=== PATIENT | female | born 2000 | race Hispanic/Latino ===

== ENCOUNTER 2020-05-19 10:35 | Emergency (ER) | payer OTHER ==
[~2020-05-19] VITALS: Ht 157.5 cm; Wt 61.9 kg
[2020-05-19] MEDS ORDERED: NS 1,000 ML IV ONE (11:15)
[2020-05-19] MEDS ORDERED: ONDANSETRON 4MG/2ML VIAL IV ONE (11:15)
[2020-05-19 11:36] LABS: BASO % 0.4 % (0.0-1.0); EOS # 0.1 10^3/uL (0.0-0.5); EOS % 1.7 % (0.0-3.0); HEMATOCRIT 40.3 % (36.0-47.0); HEMOGLOBIN 13.6 g/dl (12.0-15.5); LYMPH # 1.1 10^3/uL (1.5-5.0); LYMPH % 13.7 % (24.0-44.0); MEAN CORPUSCULAR HEMOGLOBIN 30.2 pg (27.0-33.0); MEAN CORPUSCULAR HGB CONC 33.7 g/dl (32.0-36.5); MEAN CORPUSCULAR VOLUME 89.4 fl (80.0-96.0); MONO # 0.5 10^3/uL (0.0-0.8); MONO % 5.9 % (0.0-5.0); NEUTROPHILS # 6.4 10^3/uL (1.5-8.5); NEUTROPHILS % 77.9 % (36.0-66.0); PLATELET COUNT, AUTOMATED 278 10^3/uL (150-450); RED BLOOD COUNT 4.51 10^6/uL (4.00-5.40); WHITE BLOOD COUNT 8.2 10^3/uL (4.0-10.0)
[2020-05-19 11:55] LABS: BLOOD UREA NITROGEN 9 MG/DL (7-18); CALCIUM LEVEL 9.9 MG/DL (8.5-10.1); CARBON DIOXIDE LEVEL 24 MEQ/L (21-32); CHLORIDE LEVEL 103 MEQ/L (98-107); CREATININE FOR GFR 0.82 MG/DL (0.55-1.30); GLUCOSE, FASTING 83 MG/DL (70-100); POTASSIUM SERUM 3.7 MEQ/L (3.5-5.1); SODIUM LEVEL 137 MEQ/L (136-145)
[2020-05-19] MEDS ORDERED: PYRI25TA2 PO (12:20)
[2020-05-19] MEDS ORDERED: UNIS25TA3 PO (12:20)
[2020-05-19 12:53] VITALS: BP 106/51
[2020-05-19 13:00] LABS: HCG, SERUM QUANTITATIVE 125177 MIU/ML
== END 2020-05-19 13:02 | disposition home or self-care (01) ==
LOC: M ED 10:35
DX: O21.9 Vomiting of pregnancy, unspecified (principal); Z3A.08 8 weeks gestation of pregnancy
CPT/HCPCS: 36415; 80048; 81001; 84702; 85025; 87086; 96361; 96374; 99284; J2405

== ENCOUNTER 2020-06-19 14:37 | Emergency (ER) | payer OTHER ==
[~2020-06-19] VITALS: Ht 157.5 cm; Wt 60.5 kg
[~2020-06-19 14:37] MED LIST: PYRI25TA2 PO; UNIS25TA3 PO
[2020-06-19] MEDS ORDERED: METOCLOPRAMIDE INJ 10MG/2ML VIAL (J2765 PER 1) IV ONE (15:15)
[2020-06-19] MEDS ORDERED: NS 1,000 ML IV ONE (15:15)
[2020-06-19 15:35] LABS: BASO % 0.3 % (0.0-1.0); EOS # 0.1 10^3/uL (0.0-0.5); EOS % 0.9 % (0.0-3.0); HEMATOCRIT 35.5 % (36.0-47.0); HEMOGLOBIN 11.9 g/dl (12.0-15.5); LYMPH # 0.8 10^3/uL (1.5-5.0); LYMPH % 11.5 % (24.0-44.0); MEAN CORPUSCULAR HEMOGLOBIN 29.8 pg (27.0-33.0); MEAN CORPUSCULAR HGB CONC 33.5 g/dl (32.0-36.5); MEAN CORPUSCULAR VOLUME 88.8 fl (80.0-96.0); MONO # 0.3 10^3/uL (0.0-0.8); NEUTROPHILS # 5.6 10^3/uL (1.5-8.5); NEUTROPHILS % 81.9 % (36.0-66.0); PLATELET COUNT, AUTOMATED 241 10^3/uL (150-450); WHITE BLOOD COUNT 6.8 10^3/uL (4.0-10.0)
[2020-06-19 15:46] LABS: APPEARANCE, URINE HAZY (CLEAR); BACTERIA, URINE AUTO NEGATIVE (NEGATIVE); BILIRUBIN, URINE AUTO NEGATIVE (NEGATIVE); BLOOD, URINE BLOOD NEGATIVE (NEGATIVE); COLOR, URINE AMBER (YELLOW); GLUCOSE, URINE (UA) AUTO NEGATIVE (NEGATIVE); KETONE, URINE AUTO 2+ mg/dL (NEGATIVE); LEUKOCYTE ESTERASE, URINE AUTO 2+ (NEGATIVE); MUCUS, URINE MODERATE (NEGATIVE); NITRITE, URINE AUTO NEGATIVE (NEGATIVE); PROTEIN, URINE AUTO 1+ mg/dL (NEGATIVE); RBC, URINE AUTO 1 /HPF (0-3); SPECIFIC GRAVITY URINE AUTO 1.033 (1.002-1.035); SQUAMOUS EPITHELIAL CELL UR AU 7 /HPF (0-6); WBC, URINE AUTO 31 /HPF (0-3)
[2020-06-19 16:02] LABS: ALBUMIN 3.7 GM/DL (3.2-5.2); ALT/SGPT 16 U/L (12-78); BILIRUBIN,DIRECT 0.2 MG/DL (0.0-0.2); BILIRUBIN,TOTAL 0.5 MG/DL (0.2-1.0); BLOOD UREA NITROGEN 9 MG/DL (7-18); CALCIUM LEVEL 8.7 MG/DL (8.5-10.1); CARBON DIOXIDE LEVEL 26 MEQ/L (21-32); CHLORIDE LEVEL 106 MEQ/L (98-107); CREATININE FOR GFR 0.67 MG/DL (0.55-1.30); GLUCOSE, FASTING 84 MG/DL (70-100); LIPASE 295 U/L (73-393); POTASSIUM SERUM 3.5 MEQ/L (3.5-5.1); SODIUM LEVEL 138 MEQ/L (136-145); TOTAL PROTEIN 7.2 GM/DL (6.4-8.2)
[2020-06-19] MEDS ORDERED: REGL10TA6 PO (18:16)
[2020-06-19 18:28] VITALS: BP 115/58
== END 2020-06-19 18:29 | disposition home or self-care (01) ==
LOC: M ED 14:37
DX: O21.9 Vomiting of pregnancy, unspecified (principal); Z3A.12 12 weeks gestation of pregnancy
CPT/HCPCS: 80048; 80076; 81001; 83690; 85025; 87086; 96361; 96374; 99284; J2765

== ENCOUNTER 2020-07-24 12:22 | Emergency (ER) | payer OTHER ==
[~2020-07-24] VITALS: Ht 157.5 cm; Wt 61.2 kg
[~2020-07-24 12:22] MED LIST changes: +REGL10TA6 PO
--- OUTSIDE RECORDS SUMMARY | 2020-07-24 12:32 | CCD ---
Author Author [facility] Organization [facility] Address Unknown Phone Unavailable Support Name Relationship Address Phone [facility] Next Of Kin [address] [place] [address] Unavailable RAKAN HITCHCOCK Next Of Kin [phone] [place] [address] Re-disclosure Warning The records that you are about to access may contain information from federally-assisted alcohol or drug abuse programs. If such information is present, then the following federally mandated warning applies: This information has been disclosed to you from records protected by federal confidentiality rules (42 CFR part 2). The federal rules prohibit you from making any further disclosure of this information unless further disclosure is expressly permitted by the written consent of the person to whom it pertains or as otherwise permitted by 42 CFR part 2. A general authorization for the release of medical or other information is NOT sufficient for this purpose. The Federal rules restrict any use of the information to criminally investigate or prosecute any alcohol or drug abuse patient.The records that you are about to access may contain highly sensitive health information, the redisclosure of which is protected by Article 27-F of the [facility] Public Health law. If you continue you may have access to information: Regarding HIV / AIDS; Provided by facilities licensed or operated by the [facility] Office of Mental Health; or Provided by the [facility] Office for People With Developmental Disabilities. If such information is present, then the following [facility] mandated warning applies: This information has been disclosed to you from confidential records which are protected by state law. State law prohibits you from making any further disclosure of this information without the specific written consent of the person to whom it pertains, or as otherwise permitted by law. Any unauthorized further disclosure in violation of state law may result in a fine or usp sentence or both. A general authorization for the release of medical or other information is NOT sufficient authorization for further disc losure. Insurance Providers Payer name Policy type / Coverage type Policy ID Covered democrat ID Covered democrat's relationship to mascorro Policy Mascorro Plan Information [facility] ACTIVE DUTY [id number]
[2020-07-24] MEDS ORDERED: PRENTAB53 PO (12:38)
[2020-07-24] MEDS ORDERED: NS 1,000 ML IV ONE (13:30)
[2020-07-24] MEDS ORDERED: ONDANSETRON 4MG/2ML VIAL IV ONE (13:30)
--- OUTSIDE RECORDS SUMMARY | 2020-07-24 14:12 | CCD ---
Author Author [facility] Organization [facility] Address Unknown Phone Unavailable Support Name Relationship Address Phone [facility] Next Of Kin [address] [place] [address] Unavailable RAKAN HITCHCOCK Next Of Kin [phone] [place], [place] [id number] Re-disclosure Warning The records that you are [...] is protected by Article 27-F of the [facility] Public Health law. If you continue you may have access to information: Regarding HIV / AIDS; Provided by facilities licensed or operated by the [facility] Office of Mental Health; or Provided by the [facility] Office for People With Developmental Disabilities. If such information is present, then the following [facility] mandated warning applies: This information has [...] law may result in a fine or shelter sentence or both. A general authorization for the release of medical or other information is NOT sufficient authorization for further disc losure. Insurance Providers Payer name Policy type / Coverage type Policy ID Covered alliance party ID Covered alliance party's relationship to mascorro Policy Mascorro Plan Information [facility] ACTIVE [employer] [id number]
[2020-07-24] MEDS ORDERED: PROM25TA12 RC (15:21)
[2020-07-24] MEDS ORDERED: CEFD1CAP8 PO (15:21)
[2020-07-24 15:50] VITALS: BP 110/59
== END 2020-07-24 15:51 | disposition home or self-care (01) ==
LOC: M ED 12:22
DX: O23.42 Unspecified infection of urinary tract in pregnancy, second trimester (principal); O21.9 Vomiting of pregnancy, unspecified; Z3A.17 17 weeks gestation of pregnancy; Z79.899 Other long term (current) drug therapy
CPT/HCPCS: 80047; 81001; 87086; 96361; 96374; 99284; J2405

== ENCOUNTER 2020-09-09 23:07 | Outpatient (CLI) | payer OTHER ==
[~2020-09-09] VITALS: Ht 157.5 cm; Wt 65.9 kg
[~2020-09-09 23:07] MED LIST changes: +CEFD1CAP8 PO; +PRENTAB53 PO; +PROM25TA12 RC
[2020-09-09 23:30] VITALS: BP 118/53
[2020-09-09 23:42] VITALS: BP 102/54
--- NOTE | 2020-09-10 01:20 | IPNPDOC ---
Text Note Date of Service The patient was seen on 09/10/20. NOTE 09/10/20 0105 am 20 yo lmp 03/23/20 edc 12/28/20 came to labor when wiped saw scant fresh blood. no contractions good movement recent sex < 24 hours ago' past history std positive spencer negative chapter 8 physical exam no acute distress no vaginal bleeding no discharge, monitoring active no contractions moderate variability for 25 weeks . declined pelvic examination , us breech presentation sharda normal cervix closed 4,0 cm motion noted placenta posterior no previa or abruption Bad table Item Value Date Time Urine Color YELLOW 09/09/204 Urine Appearance HAZY 09/09/204 Urine pH 7.0 UNITS 09/09/204 Urine Specific [place] 1.016 09/09/204 Urine Protein NEGATIVE mg/dL 09/09/202333 Urine Glucose (UA) NEGATIVE mg/dL 09/09/204 Urine Ketones NEGATIVE mg/dL 09/09/202333 Urine Blood NEGATIVE 09/09/204 Urine Nitrite NEGATIVE 09/09/204 Urine Bilirubin NEGATIVE 09/09/204 Urine Urobilinogen 0.2 mg/dL 09/09/204 Urine Leukocyte Esterase NEGATIVE 09/09/204 Urine WBC (Auto) 2 /HPF 09/09/204 Urine Hyaline Casts (Auto) 0 /LPF 09/09/204 Urine RBC (Auto) 0 /HPF 09/09/204 Urine Bacteria (Auto) NEGATIVE 09/09/204 Urine Squamous Epithelial Cells 0 /HPF 09/09/204 Urine Amorphous Sediment SMALL H 09/09/204 Urine Mucus (Auto) SMALL 09/09/20 2334 VS,Fishbone, I+O VS, Fishbone, I+O Bad table Vital Signs Date Time Temp Pulse Resp B/P (MAP) Pulse Ox O2 Delivery O2 Flow Rate FiO2 09/09/20 23:42 16 102/54 (70) 09/09/20 23:30 97.7 100 Room Air Fredy Sousa MD Sep 10, 2020 01:16
== END 2020-09-10 01:00 | disposition home or self-care (01) ==
LOC: M LDO 23:07
PROVIDERS: ATTEND Obstetrics & Gynecology
DX: O26.892 Other specified pregnancy related conditions, second trimester (principal); Z3A.25 25 weeks gestation of pregnancy
CPT/HCPCS: 81001; G0463

== ENCOUNTER → 2020-12-22 | Outpatient (CLI) | payer SELFPAY | LOC: M LABSMTC 09:48 | PROVIDERS: ATTEND Pediatrics | DX: Z20.822 Contact with and (suspected) exposure to COVID-19 (principal) ==

== ENCOUNTER 2020-12-30 13:08 | Inpatient (IN) | payer MEDICAID, OTHER ==
[~2020-12-30] VITALS: Ht 157.5 cm; Wt 78.1 kg
[2020-12-30 13:38] VITALS: BP 143/71
[2020-12-30] MEDS ORDERED: VITA100T59 PO (13:58)
--- NOTE | 2020-12-30 13:59 | HPEPDOC ---
Obstetrical History & Physical General Date of Admission Dec 30, 2020 at 13:08 History of Present Illness Ms. Ely Lyn is a 20yo G1 at 40w2d ega, by LMP c/w 1st trimester, wit h PNC c/b Genital HSV & Anemia who presents in Early Active Labor. Mrs. Lyn presented for a LORI appointment today at the [facility] reporting regular, q5-minute CTXs. She was checked and was found to be 2/50/-3. Repeat evaluation 3 hours later was 4/50/-2. She denies LOF, VB, and Prodromal HSV symptoms. Endorses +FM. Chief Complaint: Contractions, term Information Provided By: Patient Age: 20 : 1 Term: 0 Pre-term: 0 Abortions: 0 Livin Care Care: Good Care Number of Visits: 9 Dating Final EDC: Dec 28, 2020 Final EDC for Daily Update: Dec 28, 2020 Final EDC by: LMP, 1st trimester (US) LMP: Mar 23, 2020 1st Trimester Date: May 30, 2020 Weeks + Days: 9 Estimated Date of Confinement: Dec 28, 2020 EGA at Admission: 40 Antepartum Course Diagnos(e)s - Genital HSV - Anemia Height (inches): 62 Pre- weight (lbs.): 140 Past Medical History Past Obstetrical History : Past Obstetrical History: [facility] History: Herpes simplex virus(HSV), History of STD Past Medical History Surgical History: Denies/None Family History Significant Family History: No pertinent family hx Social History Marital Status: Single Psychosocial History: No pertinent psych hx * Smoker: non-smoker Alcohol: Denies Drugs: denies Abuse Violence Screening Have you been hit/kicked/slapp: No Have you been sexually assault: No Imunizations Tdap status: current Influenza Status: current Allergies Coded Allergies: red dye (Verified Allergy, Intermediate, Rash, 07/24/20) Penicillins (Verified Allergy, Mild, HIVES, 12/30/20) Medications Scheduled Ascorbic Acid (Vitamin C) 100 Mg Tablet, 300 MG PO BID Ferrous Sulfate (Iron) 325 Mg Tablet, 1 TAB PO BID Vit,Calc76/Iron/Folic (Prenatabs Rx Tablet) 1 Each Tablet, 1 TAB PO DAILY Valacyclovir HCl (Valtrex) 500 Mg Tablet, 500 MG PO BID Scheduled PRN Doxylamine Succinate (Unisom Sleep Aid) 25 Mg Tablet, 0.5 TAB PO BIDP PRN for NAUSEA Physical Examination Physical Examination GENERAL: Alert and oriented times three. BREAST: . ABDOMEN: Gravid and non-tender to touch. FETUS: Is vertex (VTX) by sterile vaginal examination (SVE), fetus is vertex (VTX) by Singh. HEART RATE: Regular rate and rhythm. LUNGS: Clear to auscultation (CTA). EXTREMITIES: No edema. SSE: Vesicular lesions on the cervix, no pooling of fluid Laboratory Data 24H LABS Laboratory Tests 2 12/30/20 13:29: Serology Scanned Report Hepatitis B Testing Urine Culture: No Growth Pertinent Laboratoy Data Blood Type: A+ RBC Antibody Screen: Negative HIV: Negative Hepatitis B: Negative Hepatitis C: Negative Rapid Plasma Reagin: Nonreactive Rubella: Immune Varicella: Immune Chlamydia/Gonorrhea: Negative Group B Streptococcus: Negative Quad Screen Test: Negative Cystic Fibrosis: Negative Glucose Tolerance Test: 89 Anatomy Ultrasound Ultrasound Date: Sep 09, 2020 Placenta Location: Posterior Normal Anatomy: Yes Placenta Previa: No Estimated Weight (grams): 668 Steroid Therapy Steroid Therapy: No Vaginal Examination Dilation: 4 cm Effacement: 50% Station: -2 Cervical Consistency: Medium Cervical Position: Posterior Presentation: Cephalic presentation Assessment Heart Rate (FHR): 125 Variability: Moderate Accelerations: Positive Decelerations: None Tocometer Contractions: Yes Frequency: regular, every 3-7 min. Duration: less than 60 seconds Strength: palpated as mild Multi-drug resistant Organism: No history of MDRO Assessment/Plan Assessment Ms. Renita Lyn is a 20yo G1 at 40w2d ega with PNC c/b Genital HSV & Anemia who presents in Early Active Labor with regular uterine CTXs. Unfortunately, the patient was found to have vesciular lesions on the cervix. Plan Admit and orient. 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 Diet: NPO. Group B Streptococcus (GBS) negative. Labs and intravenous (IV) per unit protocol. Counseled on Primary Low Transverse Section. Lactated Ringers (LR): 1000mL bolus with 125mL/hr. Gentamycin & Clindamycin iv 30-minutes prior to procedure. Zackary Mccall., Ph.D. [facility] Staff JOSE LUIS JANSEN M.D. Dec 30, 2020 13:59
[2020-12-30] MEDS ORDERED: IRON65TA2 PO (14:00)
[2020-12-30] MEDS ORDERED: VALT500T PO (14:00)
[2020-12-30] MEDS ORDERED: HOME MED LIST COMPLETE! XX SCH (14:05)
[2020-12-30] MEDS ORDERED: LACTATED RINGER'S 1000 ML IV STA (15:31)
[2020-12-30] MEDS ORDERED: BUPIVACAINE HCL 0.25% 10ML VIAL SC SCH (15:35)
[2020-12-30] MEDS ORDERED: BICITRA 30ML SOLN UDC PO ONE (15:45)
[2020-12-30] MEDS ORDERED: CLINDAMYCIN 900 MG in IV 1 EA IV ONE (16:00)
[2020-12-30 16:32] LABS: HEMATOCRIT 36.7 % (36.0-47.0); HEMOGLOBIN 12.5 g/dl (12.0-15.5); MEAN CORPUSCULAR HGB CONC 34.1 g/dl (32.0-36.5); MEAN CORPUSCULAR VOLUME 93.9 fl (80.0-96.0); PLATELET COUNT, AUTOMATED 234 10^3/uL (150-450); RED BLOOD COUNT 3.91 10^6/uL (4.00-5.40); WHITE BLOOD COUNT 12.8 10^3/uL (4.0-10.0)
[2020-12-30 16:52] VITALS: BP 127/66
[2020-12-30] MEDS ORDERED: D5W IV ONE (17:00)
[2020-12-30] MEDS ORDERED: GENTAMICIN IV ONE (17:00)
[2020-12-30] MEDS ORDERED: MORPHINE PRES-FREE INJ 10 MG/10 ML VIAL (J2274) As Ordered ONE (17:54)
[2020-12-30] MEDS ORDERED: dexameTHASONE 4 MG/ML 1ML VIAL (J1100 PER 1MG) As Ordered ONE ×2 (17:54→17:55)
[2020-12-30] MEDS ORDERED: OXYTOCIN 30 UNITS IN 0.9% NaCl 500ML IV BAG (J2590) As Ordered ONE ×2 (17:55→19:37)
[2020-12-30] MEDS ORDERED: KETOROLAC 60MG 2ML VIAL As Ordered ONE (17:55)
[2020-12-30] MEDS ORDERED: PHENYLephrine 500MCG 5ML (100MCG/ML) SYRINGE As Ordered ONE (17:55)
[2020-12-30] MEDS ORDERED: ePHEDrine SULFATE 25 MG/5 ML(5MG/ML) SYRINGE As Ordered ONE (17:55)
[2020-12-30] MEDS ORDERED: OXYTOCIN INJ 10 UNITS/ML VIAL (J2590) As Ordered ONE (17:55)
[2020-12-30] MEDS ORDERED: ONDANSETRON 4MG/2ML VIAL As Ordered ONE (17:55)
[2020-12-30] MEDS ORDERED: BUPIVACAINE HCL 0.25% 10ML VIAL As Ordered ONE (18:02)
[2020-12-30] MEDS ORDERED: diphenhydrAMINE 50MG/ML VIAL (J1200) IV PRN (18:06)
[2020-12-30] MEDS ORDERED: NALBUPHINE HCL 10 MG/ML AMP (J2300) IV PRN (18:06)
[2020-12-30] MEDS ORDERED: METOCLOPRAMIDE INJ 10MG/2ML VIAL (J2765 PER 1) IV PRN ×2 (18:06→19:25)
[2020-12-30] MEDS ORDERED: NALOXONE INJ 0.4MG/1ML VIAL (J2310 PER 1MG) IV PRN ×2 (18:06)
[2020-12-30] MEDS ORDERED: ONDANSETRON 4MG/2ML VIAL IV PRN ×2 (18:06→19:25)
[2020-12-30 18:47] LABS: CORD GAS ABE V -3.6; CORD GAS HCO3 V 22.9 MEQ/L; CORD GAS O2 SAT V 41.1 %; CORD GAS PCO2 V 46.7 mmHg; CORD GAS PH V 7.309 UNITS; CORD GAS PO2 V 19.9 mmHg; CORD GAS SBC V 20.1 MEQ/L; CORD GAS TCO2 V 24.4 MEQ/L
[2020-12-30 18:49] LABS: CORD GAS ABE A -4.2; CORD GAS HCO3 A 24.1 MEQ/L; CORD GAS O2 SAT A 32.4 %; CORD GAS PCO2 A 56.7 mmHg; CORD GAS PH A 7.246 UNITS; CORD GAS PO2 A 19.7 mmHg; CORD GAS SBC A 19.4 MEQ/L; CORD GAS TCO2 A 25.8 MEQ/L
[2020-12-30] MEDS ORDERED: MEASLES,MUMPS,RUBELLA VACCINE INJ (MMR-II) (90707) SC SCH (19:10)
[2020-12-30] MEDS ORDERED: SIMETHICONE 80MG CHEW TAB PO PRN (19:10)
[2020-12-30] MEDS ORDERED: RHOGAM 300 MCG (1500 IU) INJ (J2790) IM SCH (19:10)
[2020-12-30] MEDS ORDERED: ACETAMINOPHEN 500 MG TAB PO PRN (19:10)
[2020-12-30] MEDS ORDERED: ACETAMINOPHEN TAB 650MG DOSE (2X325MG) PO PRN (19:10)
[2020-12-30] MEDS ORDERED: oxyCODONE 5MG TAB PO PRN ×2 (19:10)
[2020-12-30] MEDS ORDERED: OXYTOCIN DRIP 30 UNITS in IV 1 EA IV SCH ×4 (19:10)
[2020-12-30] MEDS ORDERED: LR 1,000 ML IV SCH (19:25)
[2020-12-30] MEDS ORDERED: fentaNYL 100 MCG/2 ML INJECTION (J3010) IV PRN (19:25)
[2020-12-30] MEDS ORDERED: PERCOCET 5MG/325MG TAB PO PRN (19:25)
--- NOTE | 2020-12-30 19:47 | ROOPDOC ---
[facility] Report Of Operation Report of Operation DATE OF PROCEDURE: 12/30/20 PREPROCEDURE DIAGNOSES: 1) Term intrauterine . 2) Active HSV lesions on the cervix. POSTPROCEDURE DIAGNOSES: 1) Same As Above. 2) Delivered Via Primary Low Transverse Delivery. PROCEDURE: Primary Low Transverse Section. SURGEON: Lui Jansen MD, PhD CONCRETE BUSTER OPERATOR: Fredy Sousa MD ANESTHESIA: Spinal. ESTIMATED BLOOD LOSS: 400mL. COMPLICATIONS: None. REMARKS: This procedure was productive of a viable female infant weighing 3550- grams with APGARS 9 / 9. Estimated blood loss 400mL. 125cc of clear, yellow urine. 500mL of Lactated Ringer's. Normal appearing uterus & bilateral fallopian tubes and ovaries. The hysterotomy was repaired in 2-layers with 0 Monocryl. The vesicouterine peritoneum was closed in a running fashion with 2-O Vicryl. The peritoneum was closed with 2-0 Vicryl in a running fashion. Interrupted 2-0 Vicryl sutures x3 were used to reapproximate the rectus muscles. Fascia closed with 0-Vicryl in a running fashion. Skin was closed with 3-0 Vicryl on a Tejinder needle. PROCEDURE NOTE: See above. DESCRIPTION OF PROCEDURE: The risks, benefits, indications, and alternatives of the procedure were reviewed with the patient and informed consent was obtained. The patient was then taken to the operating room where spinal anesthesia was obt ained without difficulty. She was then prepped and draped in the normal, sterile fashion in the dorsal supine position with a leftward tilt. A Pfannenstiel incision was then made with a scalpel and carried through to the underlying layer fascia. The fascia was incised in the midline and the incision extended laterally with the Varner scissors. The superior aspect of the fascial incision was grasped with the Remy clamps elevated and the underlying rectus muscles dissected off with Varner scissors. Attention was then turned to the inferior aspect of the incision which in a similar fashion was grasped, tented up with the Remy clamps, and the rectus muscles dissected off with Varner scissors. The rectus muscles were then in the midline and the peritoneum identified, tented up, and entered digitally. The peritoneal incision was then extended horizontally with good visualization of the bladder. The bladder blade was then inserted. The vesicouterine peritoneum was then identified grasped with the pickups and entered sharply with the Metzenbaum scissors. The incision was then extended laterally and the bladder flap created digitally. The bladder blade was subsequently reinserted. Next the lower uterine segment was incised in a transverse fashion with the sca lpel. The uterine incision was then extended manually and the amniotic sac was artificially ruptured productive of meconium stained fluid. The bladder blade was removed and the infant's head delivered atraumatically through the hysterotomy without difficulty. The nose and mouth were suctioned with a bulb syringe and the cord doubly clamped and cut. The was handed off to the waiting baby nurses. Cord gases were then obtained. The placenta was then removed spontaneously with gentle traction on the umb ilical cord. The uterus was then exteriorized and cleared of all clots and debris. The uterine incision was repaired with 0-Monocryl in a running, locked fashion. A second layer of 0-Monocryl was then used to imbricate the hysterotomy in a horizontal fashion. Two [id number] sutures using 0-Monocryl were then placed in the middle aspect of the incision to obtain excellent hemostasis. The vesicouterine peritoneum was then closed with a 2-O Vicryl in a running fashion. The uterus was then returned to the abdomen and the hysterotomy was again noted to be hemostatic. The peritoneum was then identified and closed with 2-0 Vicryl in a running fashion. 2-0 Vicryl interrupted sutures x3 were placed to reapproximate the rectus muscles. The fascia was then reapproximated with 0- Vicryl in a running fashion. The subcutaneous layer layer was closed with 3-0 Vicryl in a interrupted fashion. Next the skin was closed with 4-0 Vicryl on a Tejinder needle in a subcuticular fashion. The skin incision was then dressed with Steri-Strips and a pressure dressing applied. At the completion of the case bimanual exam was performed with good uterine tone and minimal vaginal bleeding. The patient tolerated the procedure well. Sponge, lap, and needle counts were correct x3. The patient was taken to the recovery room in stable condition. JOSE LUIS JANSEN M.D. Dec 30, 2020 19:47
[2020-12-30 21:00] VITALS: BP 130/60
[2020-12-30] MEDS ORDERED: oxyCODONE 15 MG CR TAB PO SCH (21:00)
[2020-12-30] MEDS ORDERED: DOCUSATE SODIUM 100MG CAPSULE PO SCH (21:00)
[2020-12-30 21:30] VITALS: BP 128/61
[2020-12-30] MEDS ORDERED: PROMETHAZINE INJ 25 MG/ML VIAL (J2550) IV ONE (21:40)
[2020-12-30] MEDS: LR 1,000 ML IV SCH (22:15)
[2020-12-30 22:30] VITALS: BP 116/61
[2020-12-30 23:30] VITALS: BP 108/56
[2020-12-31] MEDS: KETOROLAC 30 MG/ML 1ML VIAL IV SCH ×3 (01:18→14:10)
[2020-12-31] MEDS: LR 1,000 ML IV SCH (01:19)
[2020-12-31 02:00] VITALS: BP 105/55
[2020-12-31 06:00] VITALS: BP 109/54
--- NOTE | 2020-12-31 06:13 | IPNPDOC ---
Progress Note Date of Service: Dec 31, 2020 Day#: 1 Progress Note SUBJECT: Ms. Renita Lyn is a 20yo who is POD#1 s/p an uncomplicated PLTCS secondary to active HSV outbreak. Of note, the procedure was productive of a viable female weighing 3550-grams with APGARS 9/9. Delivery was at 18:28. EBL 400mL. This morning, Ms. Lyn reports that she is doing well. Her pain is well controlled; she is tolerating oral intake; is voiding via Hartley catheter; has y et to ambulate; and is passing flatus. She is breast feeding without issue; and reports that her lochia is similar to a normal period. She desires a Nexplanon for contraception. OBJECTIVE: VITAL SIGNS: Within normal limits, afebrile. GEN: Alert and oriented times three. ABD: Pressure dressing removed revealing an incision that was c/d/i with steri- strips; Fundus firm at U-2. LE: No c/c/e LAB: CBC (30 December 2020) - 12.8>12.5/36.7<234 CBC (31 December 2020) - PENDING ASSESSMENT: Ms. Lyn is a 20yo who is POD#1 s/p an uncomplicated PLTCS who is doing well. Vitals within normal limits, afebrile, hemodynamically stable with no evidence of infection. PLAN: 1. Discontinue Hartley catheter with 4-hour Due-To-Void 2. Follow-up on morning CBC. 3. Toradol, Tylenol and Oxycodone for pain. 4. Continue Vitamins & Valtrex 5. Encouraged ambulation & continued breast feeding. 6. Nexplanon for contraception. 7. Routine incision visit in 2 weeks. 8. Routine PP visit in 6 weeks in clinic. 9. Discussed return precautions at length. VS, I&O, 24H, Fishbone Vital Signs/I&O Vital Signs Date Time Temp Pulse Resp B/P (MAP) Pulse Ox O2 Delivery O2 Flow Rate FiO2 12/31/20 02:00 97.6 67 16 105/55 (72) 100 Room Air I&O- Last 24 Hours up to 6 AM 12/31/20 06:00 Intake Total 2000 ml Output Total 1450 ml Balance 550 ml Laboratory Data 24H LABS Laboratory Tests 2 12/30/20 13:29: Serology Scanned Report Hepatitis B Testing 12/30/20 16:16: Nucleated Red Blood Cells % (auto) 0.0, Syphilis Serology NONREACTIVE 12/30/20 18:41: Cord Arterial Blood pH 7.246, Cord Arterial Blood PCO2 56.7, Cord Arterial Blood PO2 19.7, Cord Arterial Blood HCO3 24.1, Cord Arterial Blood Total CO2 25.8, Cord Arterial Blood Base Excess -4.2, Cord Arterial Base Excess (Standard 19.4, Cord Arterial Bld Oxygen Saturation 32.4, Cord Venous Blood pH 7.309, Cord Venous Blood PCO2 46.7, Cord Venous Blood PO2 19.9, Cord Venous Blood HCO3 22.9, Cord Venous Blood Total CO2 24.4, Cord Venous Base Excess (Actual) -3.6, Cord Venous Base Excess (Standard) 20.1, Cord Venous Blood Oxygen Saturation 41.1 CBC/BMP Laboratory Tests 12/30/20 16:16 JOSE LUIS JANSEN M.D. Dec 31, 2020 06:13
[2020-12-31 06:40] LABS: MEAN CORPUSCULAR HEMOGLOBIN 32.1 pg (27.0-33.0); MEAN CORPUSCULAR HGB CONC 33.3 g/dl (32.0-36.5); MEAN CORPUSCULAR VOLUME 96.2 fl (80.0-96.0); PLATELET COUNT, AUTOMATED 189 10^3/uL (150-450); RED BLOOD COUNT 3.43 10^6/uL (4.00-5.40); WHITE BLOOD COUNT 14.4 10^3/uL (4.0-10.0)
[2020-12-31] MEDS: PRENATAL VITAMINS CHEWABLE TABLET PO SCH (08:54)
[2020-12-31] MEDS: valACYclovir HCL 500 MG TAB PO SCH ×2 (08:54→21:14)
[2020-12-31 09:56] VITALS: BP 118/53
[2020-12-31 14:00] VITALS: BP 128/62
[2020-12-31 18:00] VITALS: BP 110/57
[2020-12-31] MEDS: IBUPROFEN 800 MG TAB PO SCH (21:15)
[2020-12-31 22:15] VITALS: BP 104/51
[2021-01-01 02:31] VITALS: BP 108/53
[2021-01-01] MEDS: IBUPROFEN 800 MG TAB PO SCH ×2 (04:16→12:58)
[2021-01-01 06:25] VITALS: BP 117/56
[2021-01-01] MEDS ORDERED: OXYC-517 PO (07:47)
[2021-01-01] MEDS ORDERED: IBUP80TA PO (07:47)
--- NOTE | 2021-01-01 07:51 | DS.PDOC ---
Discharge Summary General Date of Admission Dec 30, 2020 at 13:08 Date of Discharge January 01, 2021 Discharge Summary HOSPITAL COURSE: Renita is a 20 yo G1 now P1 who was admitted for concerns on labor. She was noted to have HSV lesions on her cervix and was recommended for c section. She underwent an uncomplicated PLTCS on 30Dec2020 Her surgery was uncomplicated. Her post operative recovery course was also uncomplicated. On her day of discharge she met all appropriate discharge criteria. She was ambulating, voiding on her own, tolerating a regular diet, passing gas, and her pain was well controlled with PO pain medication. DISCHARGE MEDICATIONS: Please see below. ALLERGIES: Please see below. PHYSICAL EXAMINATION ON DISCHARGE: VITAL SIGNS: Please see below. GENERAL: AAOX3, sitting up in bed, NAD CARDIOVASCULAR EXAMINATION: RRR ABDOMINAL EXAMINATION: Soft, non distended. Fundus firm at U-2. No fundal tenderness. Incision C/D/I. Appropriate tenderness to palpation. No rebound tenderness, guarding, or peritoneal signs. Steri strips intact EXTREMITIES: No edema PSYCHIATRIC EXAMINATION: Affect appropriate LABORATORY DATA: Please see below. ACTIVITY: Pelvic rest. No lifting >20 pounds for 6 weeks. DIET: Regular DISCHARGE PLAN: Discharge home DISPOSITION: DC home on 31Mar2018 . DISCHARGE INSTRUCTIONS: Postoperatively, you should expect significant abdominal soreness. We will provide oral pain medications, typically an anti-inflammatory (motrin) and an oral narcotic (percocet). It is recommended to take the anti-inflammatory medication three times daily, using the narcotic medication as needed in addition. Sometimes, narcotic medications can cause constipation, and we recommend using a stool softener (colace), drinking plenty of water, increasing the fiber in your diet, and drinking prune juice if constipation becomes a significant issue. Dressings: Your abdominal incision is closed with absorbable stitches and dressed with steri-strips. Remove the steri-strips in one week. You may shower on the day following surgery. It is normal to have some pain at the incisions that is sharp. Signs of infection at the incision include pain, redness, swelling and drainage of pus from the incision. Precautions: Please contact the [facility] during business hours, or report to the Emergency Room after hours for any of the following symptoms: * Fever (temperature > 101F) * Significant pain not controlled with oral pain medications * Significant nausea and vomiting with inability to tolerate any food or medication * Significant redness of the incisions or drainage from the incisions Return to normal: You should be able to resume normal activities and exercise within 8 weeks. You may notice more soreness with abdominal exercises, and this is to be expected. Avoid heavy lifting greater than 10 pounds until 6 weeks after surgery. Nothing in the vagina (no tampons, intercourse, or douching) for 6-8wks. You may resume sexual activity 6-8 weeks after surgery when cleared by your surgeon. ITEMS TO FOLLOWUP ON ON OUTPATIENT: 1. Incision check in two weeks at [facility] 2. 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 DISCHARGE CONDITION: Stable. TIME SPENT ON DISCHARGE: Greater than 20 minutes. Jennifer Nelson DO Vital Signs/I&Os Vital Signs Date Time Temp Pulse Resp B/P (MAP) Pulse Ox O2 Delivery O2 Flow Rate FiO2 01/01/21 06:25 97.5 65 16 117/56 (76) 01/01/21 02:31 100 Room Air Discharge Medications Scheduled Ascorbic Acid (Vitamin C) 100 Mg Tablet, 300 MG PO BID, (Reported) Ferrous Sulfate (Iron) 325 Mg Tablet, 1 TAB PO BID, (Reported) Ibuprofen (Ibuprofen) 800 Mg Tablet, 800 MG PO Q8H Vit,Calc76/Iron/Folic (Prenatabs Rx Tablet) 1 Each Tablet, 1 TAB PO DAILY, (Reported) Scheduled PRN Doxylamine Succinate (Unisom Sleep Aid) 25 Mg Tablet, 0.5 TAB PO BIDP PRN for NAUSEA Oxycodone HCl (Oxycodone HCl) 5 Mg Tablet, 5 MG PO Q6H PRN for MILD/MODERATE PAIN (PS 1-7) Allergies Coded Allergies: red dye (Verified Allergy, Intermediate, Rash, 07/24/20) Penicillins (Verified Allergy, Mild, HIVES, 12/30/20) JENNIFER NELSON DO Jan 01, 2021 07:51
[2021-01-01] MEDS: valACYclovir HCL 500 MG TAB PO SCH (08:56)
[2021-01-01] MEDS: PRENATAL VITAMINS CHEWABLE TABLET PO SCH (08:56)
[2021-01-01 10:17] VITALS: BP 125/56
== END 2021-01-01 13:05 | disposition home or self-care (01) | DRG 773 ==
LOC: M LDI 13:08 → M OBS 20:52
PROVIDERS: ADMIT Obstetrics & Gynecology Reproductive Endocrinology; ATTEND Obstetrics & Gynecology Reproductive Endocrinology
PROC: 10D00Z1 Extraction of Products of Conception, Low, Open Approach (ICD-10-PCS; principal; 2020-12-30 18:05)
DX: O98.32 Other infections with a predominantly sexual mode of transmission complicating childbirth (principal); A60.09 Herpesviral infection of other urogenital tract; Z3A.40 40 weeks gestation of pregnancy; O99.02 Anemia complicating childbirth; D64.9 Anemia, unspecified; Z37.0 Single live birth

== ENCOUNTER 2021-01-03 02:28 | Emergency (ER) | payer MEDICAID, OTHER, SELFPAY ==
[~2021-01-03] VITALS: Ht 157.5 cm; Wt 75.0 kg
[~2021-01-03 02:28] MED LIST changes: +IBUP80TA PO; +IRON65TA2 PO; +OXYC-517 PO; +VALT500T PO; +VITA100T59 PO
[2021-01-03 02:29] VITALS: BP 133/74
[2021-01-03] MEDS ORDERED: ACET-683 PO (02:38)
== END 2021-01-03 06:41 | disposition left against medical advice (07) ==
LOC: M ED 02:28
DX: Z53.21 Procedure and treatment not carried out due to patient leaving prior to being seen by health care provider (principal)